=== PATIENT | female | born 1995 | race Two or more races ===

== ENCOUNTER 2023-11-15 14:29 | Emergency (ER) | payer MEDICAID ==
[~2023-11-15] VITALS: Ht 160 cm; Wt 111.0 kg
[2023-11-15] MEDS: ondansetron/PF 4mg/2ml inj IV ONE (15:20)
[2023-11-15] MEDS: morphine 4 MG/ML inj SYRINge IV PRN (15:21)
[2023-11-15 15:33] LABS: BASOPHILS % (AUTO) 0.2 % (0-1); EOSINOPHILS % (AUTO) 0.3 % (0-6); HEMATOCRIT 38.3 % (35.0-45.0); HEMOGLOBIN 12.4 g/dl (12.0-16.0); LYMPHOCYTES # (AUTO) 1.7 X10'3 (1.1-4.8); LYMPHOCYTES % (AUTO) 14.1 % (21-51); MEAN CORPUSCULAR HEMOGLOBIN 27.8 PG (27.0-31.0); MEAN CORPUSCULAR HGB CONC 32.4 g/dL (33.0-36.5); MEAN CORPUSCULAR VOLUME 85.7 FL (78-98); MEAN PLATELET VOLUME 8.5 FL (7.4-10.4); MONOCYTES # (AUTO) 0.5 X10'3 (0-0.9); MONOCYTES % (AUTO) 4.2 % (2-12); NEUTROPHILS # (AUTO) 9.8 X10'3 (1.8-7.7); NEUTROPHILS % (AUTO) 81.2 % (42-75); PLATELET COUNT 289 X10'3 (140-440); RED BLOOD COUNT 4.47 X10'6 (4.20-5.60); RED CELL DISTRIBUTION WIDTH 15.8 % (11.5-14.5); WHITE BLOOD COUNT 12.1 X10'3 (4.5-11.0)
[2023-11-15 16:01] LABS: ALANINE AMINOTRANSFERASE 25 U/L (12-78); ALBUMIN 3.6 G/DL (3.4-5.0); ALBUMIN/GLOBULIN RATIO 0.9 (1.1-1.5); ALKALINE PHOSPHATASE 85 IU/L (46-116); ANION GAP 10 (8-16); ASPARTATE AMINO TRANSFERASE 21 U/L (10-37); BILIRUBIN,TOTAL 0.3 MG/DL (0.1-1.0); BLOOD UREA NITROGEN 16 MG/DL (7-18); BUN/CREATININE RATIO 26.2 (10.0-20.0); CALCIUM 8.7 MG/DL (8.5-10.1); CHLORIDE 106 MMOL/L (99-107); CREATININE 0.61 MG/DL (0.40-0.90); GLUCOSE 97 MG/DL (70-104); LIPASE 19 U/L (16-77); POTASSIUM 3.7 MMOL/L (3.5-5.1); SODIUM 139 MMOL/L (135-145); TOTAL CARBON DIOXIDE 23.2 MMOL/L (24-32); TOTAL PROTEIN 7.8 G/DL (6.4-8.2); eCRCL 116 ML/MIN; eGFR > 90 ML/MIN
[2023-11-15 16:07] LABS: BETA HCG,QUANTITATIVE < 1.0 mIU/ml
[2023-11-15] MEDS ORDERED: GADOTERATE MEGLUMINE 7.5 MMOL/15 ML VIAL IV ONE (18:05)
[2023-11-15] MEDS: HYDROmorphone 1 mg/ml syringe IV ONE (19:21)
[2023-11-15] MEDS: HYDROmorphone 1 mg/ml syringe IV STA (22:30)
[2023-11-16] MEDS: HYDROmorphone 1 mg/ml syringe IV STA ×2 (01:00→04:47)
[2023-11-16 01:23] LABS: BILIRUBIN,URINE SMALL (Neg); CLARITY,URINE CLOUDY (Clear); GLUCOSE, URINE NEGATIVE (Neg); KETONES,URINE 40 mg/dl (Neg); LEUKOCYTE ESTERASE ,URINE NEGATIVE (Neg); NITRITES, URINE NEGATIVE (Neg); OCCULT BLOOD,URINE LARGE (Neg); PH,URINE 5.5 (4.8-8.0); PROTEIN,URINE 100 mg/dl (Neg)
[2023-11-16 01:26] LABS: COLOR,URINE DARK YELLOW (Yellow); UA COLLECTION TYPE CLN CATCH MIDSTREAM
[2023-11-16 01:30] LABS: MUCUS STRANDS MODERATE /LPF (Neg); SQUAMOUS EPITHELIAL CELL,UR MODERATE /LPF (FEW)
[2023-11-16 01:32] LABS: BACTERIA,URINE FEW /HPF (Neg); RBC,URINE 20-50 /HPF (0-2); WBC,URINE 0-4 /HPF (0-4)
[2023-11-16] MEDS: normal saline 1000ml 1,000 ML IV ONE (01:49)
[2023-11-16] MEDS ORDERED: ipratropium/albuterol 3ml nebule NEB ONE (08:35)
[2023-11-16 12:56] VITALS: BP 120/58; PULSE 88; RESP 16; TEMP 98.8; O2SAT 98
[2023-11-16] MEDS ORDERED: cefTAZidime inj 2 GM in normal saline 100ml IV soln 100 ML IV SCH (20:00)
== END 2023-11-16 13:01 | disposition hospice, inpatient (51) ==
LOC: ER 14:29
DX: R19.09 Other intra-abdominal and pelvic swelling, mass and lump (principal)
CPT/HCPCS: 36415; 72197; 74176; 76856; 80053; 81001; 83690; 84702; 85025; 86304; 96361; 96374; 96375; 96376; 99285; A9575; J1170; J2270; J2405; J7030

== ENCOUNTER → 2023-12-07 | Emergency (ER) | payer MEDICAID ==
[~2023-12-07] VITALS: Ht 160 cm; Wt 104.5 kg
[~2023-12-07] MED LIST: DOXY-460 PO; mupirocin 2% ointment 22GM TP STA
[2023-12-07 08:10] VITALS: BP 144/77; PULSE 89; O2SAT 100
[2023-12-07 10:21] LABS: BASOPHILS % (AUTO) 0.3 % (0-1); EOSINOPHILS # (AUTO) 0.1 X10'3 (0-0.9); HEMATOCRIT 37.2 % (35.0-45.0); LYMPHOCYTES # (AUTO) 2.6 X10'3 (1.1-4.8); LYMPHOCYTES % (AUTO) 32.7 % (21-51); MEAN CORPUSCULAR HEMOGLOBIN 27.7 PG (27.0-31.0); MEAN CORPUSCULAR HGB CONC 32.2 g/dL (33.0-36.5); MEAN PLATELET VOLUME 8.5 FL (7.4-10.4); MONOCYTES # (AUTO) 0.6 X10'3 (0-0.9); MONOCYTES % (AUTO) 7.1 % (2-12); NEUTROPHILS # (AUTO) 4.7 X10'3 (1.8-7.7); NEUTROPHILS % (AUTO) 58.9 % (42-75); PLATELET COUNT 292 X10'3 (140-440); RED BLOOD COUNT 4.33 X10'6 (4.20-5.60); RED CELL DISTRIBUTION WIDTH 15.8 % (11.5-14.5)
[2023-12-07 10:36] VITALS: RESP 16; TEMP 98.1
[2023-12-07] MEDS: LIDOcaine 40mg/ml topical solution MM ONE (12:04)
== END | disposition home or self-care (01) ==
LOC: ER 08:09
DX: S31.109A Unspecified open wound of abdominal wall, unspecified quadrant without penetration into peritoneal cavity, initial encounter (principal); Z90.721 Acquired absence of ovaries, unilateral; X58.XXXA Exposure to other specified factors, initial encounter; Y93.89 Activity, other specified; Y92.89 Other specified places as the place of occurrence of the external cause; Y99.8 Other external cause status
CPT/HCPCS: 11042; 36415; 85025; 87070; 87077; 87186; 99284; J3490

== ENCOUNTER 2024-02-01 11:11 | Emergency (ER) | payer MEDICAID ==
[~2024-02-01] VITALS: Ht 160 cm; Wt 104.5 kg
[2024-02-01 11:15] VITALS: TEMP 97.9
[2024-02-01 12:28] LABS: BASOPHILS % (AUTO) 0.2 % (0-1); EOSINOPHILS % (AUTO) 0.5 % (0-6); HEMATOCRIT 36.4 % (35.0-45.0); LYMPHOCYTES # (AUTO) 2.5 X10'3 (1.1-4.8); LYMPHOCYTES % (AUTO) 31.4 % (21-51); MEAN CORPUSCULAR HEMOGLOBIN 28.2 PG (27.0-31.0); MEAN CORPUSCULAR HGB CONC 33.1 g/dL (33.0-36.5); MEAN CORPUSCULAR VOLUME 85.4 FL (78-98); MEAN PLATELET VOLUME 9.1 FL (7.4-10.4); MONOCYTES # (AUTO) 0.5 X10'3 (0-0.9); MONOCYTES % (AUTO) 5.8 % (2-12); NEUTROPHILS % (AUTO) 62.1 % (42-75); PLATELET COUNT 265 X10'3 (140-440); RED BLOOD COUNT 4.26 X10'6 (4.20-5.60); RED CELL DISTRIBUTION WIDTH 15.1 % (11.5-14.5)
[2024-02-01 12:55] LABS: ALANINE AMINOTRANSFERASE 20 U/L (12-78); ALBUMIN 3.6 G/DL (3.4-5.0); ALBUMIN/GLOBULIN RATIO 0.8 (1.1-1.5); ALKALINE PHOSPHATASE 85 IU/L (46-116); ANION GAP 10 (8-16); ASPARTATE AMINO TRANSFERASE 14 U/L (10-37); BILIRUBIN,TOTAL 0.3 MG/DL (0.1-1.0); BLOOD UREA NITROGEN 13 MG/DL (7-18); BUN/CREATININE RATIO 18.6 (10.0-20.0); CALCIUM 8.4 MG/DL (8.5-10.1); CHLORIDE 104 MMOL/L (99-107); GLUCOSE 93 MG/DL (70-104); LIPASE 21 U/L (16-77); POTASSIUM 3.5 MMOL/L (3.5-5.1); SODIUM 138 MMOL/L (135-145); TOTAL CARBON DIOXIDE 23.9 MMOL/L (24-32); TOTAL PROTEIN 8.4 G/DL (6.4-8.2); eCRCL 101 ML/MIN; eGFR > 90 ML/MIN
[2024-02-01 13:45] LABS: URINE HCG POSITIVE (NEG)
[2024-02-01 13:51] LABS: BILIRUBIN,URINE NEGATIVE (Neg); CLARITY,URINE CLEAR (Clear); COLOR,URINE STRAW (Yellow); GLUCOSE, URINE NEGATIVE (Neg); KETONES,URINE NEGATIVE (Neg); LEUKOCYTE ESTERASE ,URINE NEGATIVE (Neg); NITRITES, URINE NEGATIVE (Neg); OCCULT BLOOD,URINE NEGATIVE (Neg); PROTEIN,URINE NEGATIVE (Neg); UROBILINOGEN,URINE 0.2 E.U/dL (0.2-1.0)
[2024-02-01 13:53] LABS: UA COLLECTION TYPE NON-SPECIFIED
[2024-02-01] MEDS: ondansetron 4mg rapidly disintigrating tab PO ONE (15:11)
[2024-02-01 16:28] VITALS: BP 121/74; PULSE 88; RESP 16; O2SAT 99
[2024-02-01] MEDS ORDERED: ONDA-243 PO (16:35)
== END 2024-02-01 16:59 | disposition home or self-care (01) ==
LOC: ER 11:12
DX: O21.9 Vomiting of pregnancy, unspecified (principal); O26.891 Other specified pregnancy related conditions, first trimester; R10.9 Unspecified abdominal pain; Z3A.01 Less than 8 weeks gestation of pregnancy
CPT/HCPCS: 36415; 80053; 81003; 81025; 83690; 85025; 99283

== ENCOUNTER 2024-03-02 13:53 | Emergency (ER) | payer MEDICAID ==
[~2024-03-02] VITALS: Ht 160 cm; Wt 106.3 kg
[~2024-03-02 13:53] MED LIST changes: -DOXY-460 PO; +ONDA-243 PO; -mupirocin 2% ointment 22GM TP STA
[2024-03-02 14:06] VITALS: BP 123/73; PULSE 105; RESP 18; TEMP 98.1; O2SAT 97
[2024-03-02 14:33] LABS: BILIRUBIN,URINE NEGATIVE (Neg); CLARITY,URINE CLEAR (Clear); COLOR,URINE YELLOW (Yellow); GLUCOSE, URINE NEGATIVE (Neg); KETONES,URINE TRACE mg/dl (Neg); LEUKOCYTE ESTERASE ,URINE TRACE (Neg); NITRITES, URINE NEGATIVE (Neg); OCCULT BLOOD,URINE NEGATIVE (Neg); PH,URINE 6.5 (4.8-8.0); PROTEIN,URINE NEGATIVE (Neg); UROBILINOGEN,URINE 0.2 E.U/dL (0.2-1.0)
[2024-03-02 14:36] LABS: URINE HCG POSITIVE (NEG)
[2024-03-02 14:38] LABS: UA COLLECTION TYPE CLN CATCH MIDSTREAM
[2024-03-02 14:40] LABS: BACTERIA,URINE FEW /HPF (Neg); MUCUS STRANDS NONE SEEN /LPF (Neg); RBC,URINE 0 /HPF (0-2); TRANSITIONAL EPI CELLS,URINE FEW /HPF
[2024-03-02 14:41] LABS: SPERM FEW /HPF
[2024-03-02 14:43] LABS: SQUAMOUS EPITHELIAL CELL,UR MODERATE /LPF (FEW)
[2024-03-02 15:41] LABS: BASOPHILS % (AUTO) 0.2 % (0-1); EOSINOPHILS % (AUTO) 0.4 % (0-6); HEMATOCRIT 35.5 % (35.0-45.0); HEMOGLOBIN 11.7 g/dl (12.0-16.0); LYMPHOCYTES # (AUTO) 2.3 X10'3 (1.1-4.8); LYMPHOCYTES % (AUTO) 25.2 % (21-51); MEAN CORPUSCULAR HEMOGLOBIN 28.1 PG (27.0-31.0); MEAN CORPUSCULAR HGB CONC 33.1 g/dL (33.0-36.5); MEAN CORPUSCULAR VOLUME 84.9 FL (78-98); MEAN PLATELET VOLUME 8.2 FL (7.4-10.4); MONOCYTES # (AUTO) 0.7 X10'3 (0-0.9); MONOCYTES % (AUTO) 7.6 % (2-12); NEUTROPHILS # (AUTO) 6.2 X10'3 (1.8-7.7); NEUTROPHILS % (AUTO) 66.6 % (42-75); PLATELET COUNT 282 X10'3 (140-440); RED BLOOD COUNT 4.18 X10'6 (4.20-5.60); RED CELL DISTRIBUTION WIDTH 15.4 % (11.5-14.5); WHITE BLOOD COUNT 9.2 X10'3 (4.5-11.0)
[2024-03-02 15:55] LABS: ALANINE AMINOTRANSFERASE 19 U/L (12-78); ALBUMIN 2.9 G/DL (3.4-5.0); ALBUMIN/GLOBULIN RATIO 0.6 (1.1-1.5); ALKALINE PHOSPHATASE 131 IU/L (46-116); ANION GAP 9 (8-16); ASPARTATE AMINO TRANSFERASE 10 U/L (10-37); BILIRUBIN,TOTAL 0.3 MG/DL (0.1-1.0); BLOOD UREA NITROGEN 4 MG/DL (7-18); BUN/CREATININE RATIO 6.8 (10.0-20.0); CHLORIDE 102 MMOL/L (99-107); CREATININE 0.59 MG/DL (0.40-0.90); GLUCOSE 101 MG/DL (70-104); POTASSIUM 3.8 MMOL/L (3.5-5.1); SODIUM 135 MMOL/L (135-145); TOTAL CARBON DIOXIDE 24.2 MMOL/L (24-32); TOTAL PROTEIN 7.6 G/DL (6.4-8.2); eCRCL 120 ML/MIN; eGFR > 90 ML/MIN
[2024-03-02] MEDS: normal saline 1000ml 1,000 ML IV ONE (16:16)
[2024-03-02 16:17] LABS: LIPASE 16 U/L (16-77)
[2024-03-02 16:18] LABS: BETA HCG,QUANTITATIVE 161003 mIU/ml
[2024-03-02] MEDS: proCHLORperazine 10 MG/2 ml inj IV STA (16:21)
[2024-03-02] MEDS: diphenhydrAMINE 50 mg/ml inj IV STA (16:21)
[2024-03-02] MEDS: CefTRIAXone/D5W-Rocephin 1gm 50 ML IV STA (16:22)
[2024-03-02] MEDS: acetaminophen 1,000mg/100ml IV 100 ML IV STA (16:22)
[2024-03-02] MEDS: normal saline 1000ml 1,000 ML IV STA (16:38)
[2024-03-02] MEDS ORDERED: ONDA-243 PO (17:35)
[2024-03-02] MEDS ORDERED: CEPH-585 PO (17:40)
[2024-03-02] MEDS ORDERED: DOXY1TAB3 PO (17:43)
== END 2024-03-02 18:00 | disposition home or self-care (01) ==
LOC: ER 13:54
DX: O21.0 Mild hyperemesis gravidarum (principal); Z3A.11 11 weeks gestation of pregnancy
CPT/HCPCS: 36415; 76801; 80053; 81001; 81025; 83690; 84702; 85025; 87077; 87088; 87186; 96365; 96375; 99285; J0131; J0696; J0780; J1200; J7030; 96361; 96374